=== PATIENT | male | born 2005 | race Caucasian/White ===

== ENCOUNTER 2023-08-08 16:54 | Emergency (ER) | payer SELFPAY ==
[2023-08-08] MEDS: Tetracaine HCl/PF 0.5% 4 ML Bottle EYEBOTH ONE (17:35)
== END 2023-08-08 18:35 | disposition home or self-care (01) ==
LOC: MW.ED 16:54
DX: S05.01XA Injury of conjunctiva and corneal abrasion without foreign body, right eye, initial encounter (principal); W44.8XXA Other foreign body entering into or through a natural orifice, initial encounter
CPT/HCPCS: 99283; J3490